=== PATIENT | male | born 1980 | race African-American/Black ===

== ENCOUNTER 2018-10-17 19:27 | Emergency (ER) | payer BC, OTHER ==
[2018-10-17] MEDS ORDERED: ONDANSETRON *ODT* 4 MG TABLET SL ONE (20:04)
--- NOTE | 2018-10-17 20:04 | PDOC ---
Rapid Medical Evaluation Medical Evaluation: Allergies Allergy/AdvReac Type Severity Reaction Status Date / Time shellfish derived Allergy Swelling Verified 02/18/13 16:21 10/17/18 20:02 I have performed a brief in-person evaluation of this patient. The patient presents with a chief complaint of:nausea and vomiting for 24hrs . no pmhx. last vomit 2 hrs ago last meal was cooked ham. Pertinent physical exam findings:none I have ordered the following:zofran 4mg odt The patient will proceed to the ED for further evaluation.
[2018-10-17 20:06] VITALS: BP 160/93; PULSE 99; TEMP 100.9; BMI 25.7
[2018-10-17] MEDS ORDERED: SODIUM CHLORIDE 1,000 ML IV STA (21:11)
[2018-10-17] MEDS ORDERED: ONDANSETRON 4 MG/2 ML VIAL IVPUSH ONE (21:11)
--- NOTE | 2018-10-17 21:20 | PDOC ---
History of Present Illness - General Chief Complaint: Respiratory Stated Complaint: Nausea/Vomiting FEVER Time Seen by Provider: 10/17/18 20:02 History Source: Patient, Significant Other Exam Limitations: No Limitations - History of Present Illness Initial Comments: 10/17/18 21:14 HISTORY OF PRESENT ILLNESS: 38-year-old male with past medical history of small bowel obstruction presents emergency department for evaluation of abdominal pain and vomiting since 7 AM. Patient states she's had 5 episodes of non-bloody nonbilious food stuff vomiting starting at approximately 7 AM today. Patient reports trying to eat a baked making she simmered for breakfast which was able to hold down for approximately 1 hour prior to vomiting. Patient reports sucking on hard candy and is drinking fluids without difficulties. Patient reports he had a formed bowel movement approximately 3:00 this afternoon. He denies any rectal bleeding at that time. Symptoms are similar to his SBO. Patient reports fever at home with a maximum temperature of 102 prior to coming to the emergency department. He denies taking any antipruritic medication prior to hospitalization. Significant other with loose stools for 3 days. PAST MEDICAL HISTORY: SBO 2014 SURGICAL HISTORY: "abdominal surgeries" as ALLERGIES: shellfish REVIEW OF SYSTEMS General/Constitutional: +fever and chills. Denies weakness, weight change. HEENT: Denies change in vision. Denies ear pain or discharge. Denies sore throat. Cardiovascular: Denies chest pain or shortness of breath. Respiratory: Denies cough, wheezing, or hemoptysis. Gastrointestinal: +nausea, vomiting. Denies diarrhea or constipation. Denies rectal bleeding. Genitourinary: Denies dysuria, frequency, or change in urination. Musculoskeletal: Denies joint or muscle swelling or pain. Denies neck or back pain. Skin and breasts: Denies rash or easy bruising. Neurologic: Frontal headache. Denies vertigo, loss of consciousness, or loss of sensation. Psychiatric: Denies depression or anxiety. Endocrine: Denies increased thirst. Denies abnormal weight change. Hematologic/Lymphatic: Denies anemia, easy bleeding, or history of blood clots. Allergic/Immunologic: Denies hives or skin allergy. Denies latex allergy. PHYSICAL EXAM General Appearance: Well-appearing, appropriately dressed. No apparent distress , no intoxication. HEENT: EOMI, PERRLA, normal ENT inspection, normal voice, TMs normal, pharynx normal. No conjunctival pallor. No photophobia, scleral icterus. Neck: Supple. Trachea midline. No tenderness, rigidity, carotid bruit, stridor , lymphadenopathy, or thyromegaly. Respiratory/Chest: Lungs CTAB. No shortness of breath, chest tenderness, respiratory distress, accessory muscle use. No crackles, rales, rhonchi, stridor , wheezing, dullness Cardiovascular: RRR. S1, S2. No JVD, murmur, bradycardia, tachycardia. Vascular Pulses: Dorsalis-Pedis (R): 2+, Dorsalis-Pedis (L): 2+ Gastrointestinal/Abdominal: Hyperactive bowel sounds. Abdomen soft, non- distended. LUQ tenderness. No rebound tenderness. No organomegaly, pulsatile mass, guarding, hernia, hepatomegaly, splenomegaly. Lymphatic: No adenopathy, tenderness. Musculoskeletal/Extremities: Normal inspection. FROM of all extremities, normal capillary refill. Pelvis Stable. No CVA tenderness. No tenderness to extremities, pedal edema, swelling, erythema or deformity. Integumentary: Appropriate color, dry, warm. No cyanosis, erythema, jaundice or rash. Midline abdominal surgical scar. Neurologic: body trimmer II-XII intact. Fully oriented, alert. Appropriate mood/affect. Motor strength 5/5. No appreciable EOM palsy, facial droop or sensory deficit. Past History - Past Medical History Allergies/Adverse Reactions: Allergies Allergy/AdvReac Type Severity Reaction Status Date / Time shellfish derived Allergy Swelling Verified 10/17/18 20:57 Home Medications: Ambulatory Orders No Home Medications 0 dose .ROUTE UTDICT 02/18/13 Ondansetron [Zofran Odt -] 4 mg SL TID #21 od.tablet 10/18/18 - Surgical History Abdominal Surgery: Yes (AT ) - Suicide/Smoking/Psychosocial Hx Smoking Status: Yes Smoking History: Current every day smoker Number of Cigarettes Smoked Daily: 6 Information on smoking cessation initiated: No Hx Alcohol Use: No Drug/Substance Use Hx: No *Physical Exam - Vital Signs Last Vital Signs Temp Pulse Resp BP Pulse Ox 100.9 F H 99 H 19 160/93 100 10/17/18 20:03 10/17/18 20:03 10/17/18 20:03 10/17/18 20:03 10/17/18 20:03 Moderate Sedation - Procedure Monitoring Vital Signs: Procedure Monitoring Vital Signs Temperature 100.9 F H 10/17/18 20:03 Pulse Rate 99 H 10/17/18 20:03 Respiratory Rate 19 10/17/18 20:03 Blood Pressure 160/93 10/17/18 20:03 O2 Sat by Pulse Oximetry (%) 100 10/17/18 20:03 Heart Score/ECG Review - ECG Intrepretation Rhythm: Regular Rhythm - ST and T Early Repolarization: No Non Specific ST-T Wave changes: No - ECG Impressions Normal ECG: Yes ED Treatment Course - LABORATORY CBC & Chemistry Diagram: 10/17/18 21:34 10/17/18 21:34 - RADIOLOGY Radiology Studies Ordered: Category Date Time Status ABDOMEN & PELVIS CT WITH CONTR [CT] Stat CT Scan 10/17/18 21:12 Ordered Medical Decision Making - Medical Decision Making 10/17/18 21:21 A/P: 38-year-old male with history of SBO with abdominal pain and vomiting today Hyperactive bowel sounds Abdomen soft nondistended Tenderness to the left upper quadrant. No rebound tenderness noted No CVA tenderness Cranial nerves II through XII grossly intact DDx: Gastroenteritis, bowel obstruction, perforation, pancreatitis, influenza, GERD, sepsis Labs, urine, influenza swab, blood cultures, CTAP, Zofran, IVF, pt refusing analgesia at present 10/18/18 01:14 CT abdomen and pelvis as read by imaging coroner forensic technician: No diverticulosis or acute diverticulitis. No bowel obstruction, colitis, free fluid or free air. Normal appendix. Minimal to moderate feces in the colon. Unremarkable pancreas and gallbladder Subcentimeter cortical hypodensity in the right kidney. Tiny umbilical hernia containing fat. Influenza testing is negative. Laboratory testing remarkable for left shift. Physical exam laboratory testing and CT results indicative of gastroenteritis. I 'll give the patient a PO trial and reassess. 10/18/18 01:34 Patient tolerated oral fluids. I'll discharge the patient home to follow-up with his primary doctor within the next 2 days if symptoms persist. I'll give the patient prescription for Zofran ODT the last the next 4 days. I discussed the physical exam findings, ancillary test results and final diagnoses with the patient. I answered all of the patient's questions. The patient was satisfied with the care received and felt comfortable with the discharge plan and treatment plan. The patient will call their primary care physician within 24 hours to arrange follow-up and will return to the Emergency Department with any new, persistent or worsening symptoms. *DC/Admit/Observation/Transfer Diagnosis at time of Disposition: Gastroenteritis - Discharge Dispostion Disposition: HOME Condition at time of disposition: Stable Decision to Admit order: No - Prescriptions Prescriptions: Ondansetron [Zofran Odt -] 4 mg SL TID #21 od.tablet - Referrals - Patient Instructions Additional Instructions: Rest, drink lots of fluids: Teas, water, soups Chelsea juancarlos, carbonated beverages for the bubbles May try peppermint teas Avoid heavy , spicy or fatty foods until symptoms have resolved Avoid contact with others until fevers and symptoms resolved Lots of handwashing and good hygiene Continue [id number] medications for symptomatic relief Tylenol or Motrin for fever and pain May use Zofran-one tablet dissolved on tongue as needed for nauseousness. May repeat times one every 8 hours Followup with private physician in one to 2 days as needed Return to emergency department for worsened symptoms, fevers, dehydration - Post Discharge Activity Forms/Work/School Notes: Back to Work
[2018-10-17] MEDS ORDERED: ONDANSETRON 4 MG/2 ML VIAL ONE (21:46)
[2018-10-17 21:53] LABS: BASO % 0.3 % (0-2.0); EOS % 0.3 % (0-4.5); HEMATOCRIT 40.7 % (35.4-49); HEMOGLOBIN 14.4 GM/dL (11.7-16.9); LYMPH % 6.6 % (8-40); MCH 28.9 pg (25.7-33.7); MCHC 35.3 g/dl (32.0-35.9); MEAN CELL VOLUME 81.9 fl (80-96); MEAN PLT VOLUME 7.5 fl (7.5-11.1); MONO % 3.1 % (3.8-10.2); NEUT % 89.7 % (42.8-82.8); PLATELET COUNT 207 K/MM3 (134-434); RBC 4.97 M/mm3 (4.00-5.60); WHITE BLOOD COUNT 6.9 K/mm3 (4.0-10.0)
[2018-10-17 22:58] LABS: ALBUMIN 3.6 g/dl (3.4-5.0); ALK PHOS 70 U/L (45-117); ANION GAP 7 MMOL/L (8-16); BILIRUBIN,TOTAL 0.9 mg/dL (0.2-1); BLOOD UREA NITROGEN 16 mg/dL (7-18); CALCIUM 8.4 mg/dL (8.5-10.1); CHLORIDE 107 mmol/L (98-107); CO2 27 mmol/L (21-32); CREATININE 1.2 mg/dL (0.55-1.3); GLUCOSE,RANDOM 118 mg/dL (74-106); LIPASE 117 U/L (73-393); POTASSIUM 3.7 mmol/L (3.5-5.1); SGOT/AST 29 U/L (15-37); SGPT/ALT 48 U/L (13-61); SODIUM 140 mmol/L (136-145); TOT PROT 6.6 g/dl (6.4-8.2)
[2018-10-18] MEDS ORDERED: SODIUM CHLORIDE 1,000 ML IV STA (00:15)
--- NOTE | 2018-10-18 13:27 | EKG ---
Test Reason : Blood Pressure : / mmHG Vent. Rate : 094 BPM Atrial Rate : 094 BPM P-R Int : 152 ms QRS Dur : 078 ms QT Int : 340 ms P-R-T Axes : 072 054 029 degrees QTc Int : 425 ms NORMAL SINUS RHYTHM NORMAL ECG NO PREVIOUS ECGS AVAILABLE Confirmed by NAKIA SHAH MD ([id number]) on 10/18/2018 1:26:55 PM Referred By: Confirmed By:NAKIA SHAH MD
== END 2018-10-18 01:46 | disposition home or self-care (01) ==
LOC: JER 19:27
PROC: 3E0337Z Introduction of Electrolytic and Water Balance Substance into Peripheral Vein, Percutaneous Approach (ICD-10-PCS; principal; 2018-10-17)
PROC: 3E033GC Introduction of Other Therapeutic Substance into Peripheral Vein, Percutaneous Approach (ICD-10-PCS; 2018-10-17)
DX: K52.9 Noninfective gastroenteritis and colitis, unspecified (principal)
CPT/HCPCS: 36415; 74177-TC; 80053; 83690; 85025; 87040; 87804; 93005; 93010; 99282-25; J7030

== ENCOUNTER 2021-08-17 13:04 | Emergency (ER) | payer OTHER ==
[2021-08-17 13:31] VITALS: BP 140/101; PULSE 63; TEMP 98.2; BMI 25.4
== END 2021-08-17 14:09 | disposition home or self-care (01) ==
LOC: FER 13:04
DX: R00.9 Unspecified abnormalities of heart beat (principal)
CPT/HCPCS: 93005; 99283-25